=== PATIENT | male | born 1990 | race Caucasian/White ===

== ENCOUNTER 2018-01-12 10:19 | Emergency (ER) | payer OTHER ==
[2018-01-12 10:24] VITALS: BP 131/88; PULSE 83; TEMP 98.2; BMI 21.2
--- NOTE | 2018-01-12 10:37 | PDOC ---
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 Came for evaluation and PEP area patient denies knowledge of significant illness for source patient and claims to be HIV negative with hepatitis negative. However source patient will be tested for HIV, hepatitis B, and hepatitis C at the care home. Patient has never had needle stick injury in the past, 01/12/18 11:15 Timing: this morning Severity: mild, moderate Exposed Location: Right: Finger(s) (thumb) Assessing Significant Risk PEP: Yes Percutaneous, Yes Blood Past History - Travel Traveled outside of the country in the last 30 days: No Close contact w/someone who was outside of country & ill: No - Past Medical History Allergies/Adverse Reactions: Allergies Allergy/AdvReac Type Severity Reaction Status Date / Time No Known Allergies Allergy Verified 01/12/18 10:20 Home Medications: Ambulatory Orders Raltegravir [Isentress -] 400 mg PO BID #46 tab 01/12/18 COPD: No GI Disorders: Yes (gerd) - Suicide/Smoking/Psychosocial Hx Smoking History: Never smoked Have you smoked in the past 12 months: No Information on smoking cessation initiated: No Hx Alcohol Use: No Drug/Substance Use Hx: No Substance Use Type: None Review of Systems - Review of Systems Able to Perform ROS?: Yes Is the patient limited Sami proficient: Yes Constitutional: Yes: Symptoms Reported, See HPI, Malaise HEENTM: No: Symptoms Reported Musculoskeletal: Yes: Symptoms Reported, See HPI Integumentary: Yes: Symptoms Reported, See HPI All Other Systems: Reviewed and Negative *Physical Exam - Vital Signs Last Vital Signs Temp Pulse Resp BP Pulse Ox 98.2 F 83 18 131/88 100 01/12/18 10:21 01/12/18 10:21 01/12/18 10:21 01/12/18 10:21 01/12/18 10:21 - Physical Exam General Appearance: Yes: Nourished, Appropriately Dressed, Apparent Distress HEENT: positive: ANGELITA, Normal ENT Inspection, Normal Voice, TMs Normal, Pharynx Normal Neck: positive: Supple. 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 NML intact, Fully Oriented, Alert, Normal Mood/ Affect, Normal Response, Motor Strength 5/5 Post Exposure - ED Protocol - Exposure Treatment Washing/Decontamination: Soap/Water Source Patient HIV Status:: Unknown Is PEP indicated?: Yes Prophylaxis for HIV discussed?: Yes Prophylaxis given?: Yes Treatment Given:: Truvada (Tenof+Emtricita), Isentress (Raltegravir) Drug(s) Information Sheets given:: Yes Baseline bloods drawn prophylaxis:(use *Exposure-Hosp Emp): Yes - Referrals Employee Referred to Employee Health:: No (non employee) 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 referral to PCP: Yes (will F/U with PMD) Progress Note - Progress Note Progress Note: Discussed HIV and hepatitis prophylaxis with patient. Is hepatitis B vaccinated , and understands hepatitis C will need re-monitoring for potential conversion. After discussion with risk factors for PEP with patient and HIV possibility, knowing that patient will be tested for HIV and hepatitis at care home and has been a long-term patient at the care home, has opted to take the PEP and given first dose here. Will follow-up with his PMD for additional testing and treatment. Given prescription for additional Isentress tablets to cover the total 30 day course. Labs negative for HIV and other laboratory work unremarkable. *DC/Admit/Observation/Transfer Diagnosis at time of Disposition: Needle stick injury of finger Qualifiers: Encounter type: initial encounter Qualified Code(s): S61.239A - Puncture wound without foreign body of unspecified finger without damage to nail, initial encounter - Discharge Dispostion Disposition: HOME Condition at time of disposition: Stable Admit: No - Prescriptions Prescriptions: Raltegravir [Isentress -] 400 mg PO BID #46 tab - Referrals Referrals: Kyrie Ann MD [Staff Physician] - - Patient Instructions Printed Discharge Instructions: How to Handle Body Fluid Exposure -- Non- Healthcare Worker (At Home, Caregi Additional Instructions: Rest, Keep wound clean, reapply bacitracin and bandaid until healed Medications for prophylaxis : Isentress 400mg every 12 hours daily for total of 30 days Truvada 1 tab daily for 30 days. Follow up with Private DrJose Juan for testing in 3-6 months for repeat HIV, Hep B, Hep C 01/12/18 1. As discussed, a screening test for the HIV virus was performed today. Your HIV test is Negative (normal). 2. As discussed, if you engaged in high risk-behavior in the three (3) months prior to this test, you could still potentially be at risk and you will need to be re-tested. 3. As discussed, avoid any high risk behavior (such as unprotected sex or needle-sharing) in the future to minimize the chances of xander HIV. - Post Discharge Activity Forms/Work/School Notes: Back to Work
[2018-01-12 10:56] LABS: BASO % 0.5 % (0-2.0); EOS % 0.7 % (0-4.5); HEMATOCRIT 45.2 % (35.4-49); MCH 30.7 pg (25.7-33.7); MCHC 35.3 g/dl (32.0-35.9); MEAN PLT VOLUME 10.2 fl (7.5-11.1); MONO % 9.4 % (3.8-10.2); NEUT % 70.4 % (42.8-82.8); PLATELET COUNT 113 K/MM3 (134-434); RDW 12.2 % (11.9-15.9); WHITE BLOOD COUNT 4.7 K/mm3 (4.0-10.0)
[2018-01-12] MEDS ORDERED: HIV POST EXPOSURE PROPHYLAXIS KIT NR ONE (11:03)
[2018-01-12] MEDS ORDERED: HIV POST EXPOSURE PROPHYLAXIS KIT PO ONE (11:08)
[2018-01-12 11:24] LABS: ALBUMIN 4.7 g/dl (3.4-5.0); ANION GAP 1 (8-16); BILIRUBIN,TOTAL 0.5 mg/dL (0.2-1.0); BLOOD UREA NITROGEN 24 mg/dL (7-18); CALCIUM 9.1 mg/dL (8.5-10.1); CHLORIDE 106 mmol/L (98-107); CO2 33 mmol/L (21-32); CREATININE 0.8 mg/dL (0.7-1.3); GLUCOSE,RANDOM 100 mg/dL (74-106); POTASSIUM 4.9 mmol/L (3.5-5.1); SGOT/AST 24 U/L (15-37); SGPT/ALT 26 U/L (12-78); SODIUM 140 mmol/L (136-145); TOT PROT 8.1 g/dl (6.4-8.2); TRIGLYCERIDES 37 mg/dL (35-160)
[2018-01-12 11:25] LABS: ALK PHOS 83 U/L (45-117)
[2018-01-13 08:08] LABS: HBsAG SCREEN Negative (Negative); HEPATITIS B CORE ANTIBODY Positive (Negative)
== END 2018-01-12 12:27 | disposition home or self-care (01) ==
LOC: JERFT 10:19
DX: S61.239A Puncture wound without foreign body of unspecified finger without damage to nail, initial encounter (principal); W46.0XXA Contact with hypodermic needle, initial encounter; Y93.89 Activity, other specified; Y92.129 Unspecified place in nursing home as the place of occurrence of the external cause; Y99.0 Civilian activity done for income or pay; K21.9 Gastro-esophageal reflux disease without esophagitis
CPT/HCPCS: 36415; 80053; 84478; 85025; 86704; 87340; 87389; 99282-25